=== PATIENT | female | born 1975 | race Caucasian/White ===

== ENCOUNTER 2016-07-22 08:04 | Emergency (ER) | payer OTHER ==
--- NOTE | 2016-07-22 08:57 | ED NURSING NOTES ---
Clinical Report - Nurses [facility] [address] [place] [address] 07/22/2016 8:08 Patient: YANNICK MAYA TRIAGE Triage time 0815. Acuity: LEVEL 4. Chief Complaint: INJURY TO LEFT HAND. Alert. No acute distress. --08:20 Rosy Espinoza 08:18 07/22/16. BP: 119/77. HR: 58. RR: 18. O2 saturation: 100%. Temp: 98.5 F. Pain level now 5/10. --08:20 Rosy Espinoza. Weight: 58.9 kg. Height/Length: 60 inches. BMI: 25.4. --08:17 Roys Espinoza. Medications None. --08:19 Rosy Espinoza. Allergies No Known Drug Allergy. --08:19 Rosy Espinoza. History Arrived by private vehicle. Historian: patient. Accompanied by family. This occurred just prior to arrival. Occurred at work. Mechanism of injury: she sustained a crush injury. ( Pt got hand shut in door of walk in at work). Treatment BOOK AUTHOR: None. SOCIAL HX: Heavy tobacco smoker (cigarette)- less than 1 pack per day. --08:20 Rosy Espinoza. PROBLEMS: Dental Pain. Acute Otalgia. --08:19 Rosy Espinoza. ADDITIONAL SURGERIES: . --08:19 Rosy Espinoza. Interventions ID band on patient. To treatment room. --08:20 Rosy Espinoza. PHYSICAL ASSESSMENT Ambulatory to room. GENERAL / NEURO / PSYCH: Oriented X 4. Alert. Appears in no acute distress. EXTREMITIES: Capillary refill is less than 2 seconds in the extremities. Extremity pulses are within normal limits. Extremities exhibit normal ROM. Neuro-vascular status intact to the extremity. Left hand: tenderness and swelling localized to the proximal aspect of the hand. SKIN: Skin intact. Skin is warm and dry. --08:21 Rosy Espinoza. NURSING PROGRESS NOTES Reassurance given. Call light placed in reach. Bed placed in lowest position. Brakes of bed on. Patient ready for evaluation- chart flagged. --08:22 Rosy Espinoza 09:06 07/22/16. 3 inch pablo bandage applied to left ankle; distal pulses intact, sensation intact and motor function within normal limits. --09:06 Starla Regalado. DISPOSITION / DISCHARGE Departure time: 904. Condition at departure: unchanged and stable. No learning barriers present. Discharge instructions provided and reviewed with the patient. Reviewed medication(s). Work note given. Patient verbalized understanding. Written instructions provided in Macanese. The patient was discharged by the physician. She was discharged home and accompanied by family. She left the Emergency Department ambulatory and via private vehicle. Family member driving. --09:08 Rosy Espinoza. Locked/Released at 07/22/2016 9:09 by Rosy Espinoza,
--- NOTE | 2016-07-22 08:57 | ED NURSING NOTES ---
Clinical Report - Nurses [facility] [address] [place] [address] 07/22/2016 8:08 Patient: YANNICK MAYA TRIAGE Triage time 0815. Acuity: LEVEL 4. Chief Complaint: INJURY TO LEFT HAND. Alert. No acute distress. --08:20 Rosy Espinoza 08:18 07/22/16. BP: 119/77. HR: 58. RR: 18. O2 saturation: 100%. Temp: 98.5 F. Pain level now 5/10. --08:20 Rosy Espinoza. Weight: 58.9 kg. Height/Length: 60 inches. BMI: 25.4. --08:17 Rosy Espinoza. Medications None. --08:19 Rosy Espinoza. Allergies No Known Drug Allergy. --08:19 Rosy Espinoza. History Arrived by private vehicle. Historian: patient. Accompanied by family. This occurred just prior to arrival. Occurred at work. Mechanism of injury: she sustained a crush injury. ( Pt got hand shut in door of walk in at work). 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 SOCIAL HX: Heavy tobacco smoker (cigarette)- less than 1 pack per day. --08:20 Rosy Espinoza. PROBLEMS: Dental Pain. Acute Otalgia. --08:19 Rosy Espinoza. ADDITIONAL SURGERIES: . --08:19 Rosy Espinoza. Interventions ID band on patient. To treatment room. --08:20 Rosy Espinoza. PHYSICAL ASSESSMENT Ambulatory to room. GENERAL / NEURO / PSYCH: Oriented X 4. Alert. Appears in no acute distress. EXTREMITIES: Capillary refill is less than 2 seconds in the extremities. Extremity pulses are within normal limits. Extremities exhibit normal ROM. Neuro-vascular status intact to the extremity. Left hand: tenderness and swelling localized to the proximal aspect of the hand. SKIN: Skin intact. Skin is warm and dry. --08:21 Rosy Espinoza. NURSING PROGRESS NOTES Reassurance given. Call light placed in reach. Bed placed in lowest position. Brakes of bed on. Patient ready for evaluation- chart flagged. --08:22 Rosy Espinoza 09:06 07/22/16. 3 inch pablo bandage applied to left ankle; distal pulses intact, sensation intact and motor function within normal limits. --09:06 Starla Regalado. DISPOSITION / DISCHARGE Departure time: 904. Condition at departure: unchanged and stable. No learning barriers present. Discharge instructions provided and reviewed with the patient. Reviewed medication(s). Work note given. Patient verbalized understanding. Written instructions provided in [place]ian. The patient was discharged by the physician. She was discharged home and accompanied by family. She left the Emergency Department ambulatory and via private vehicle. Family member driving. --09:08 Rosy Espinoza. Locked/Released at 07/22/2016 9:09 by Rosy Espinoza,
--- NOTE | 2016-07-22 08:57 | ED ORDER SUMMARY ---
..... Patient: YANNICK MAYA OrderSheet [facility] VisitID: [id number] [address] [place] [address] 40y, F Registration Date/Time: 07/22/2016 ORDER SHEET Weight: 58.9 kg Allergies: No Known Drug Allergy GENERAL ORDERS: Hand 3 or 4V Left Urgent (08:21 07/22/2016 Anthony per protocol) (Ack 8:25 KHoerner) (8:40 KHoerner) Markie Wrap (08:53 07/22/2016 Wilmer MCKEON) (9:05 Franco) MEDICATION ORDERS: IV FLUIDS: ORDER SHEET NOTES: [Electronically signed by Rosy Espinoza (09:09 07/22/2016)] [Electronically signed by Srinath Garcia MD (21:56 07/23/2016)] [Electronically locked/signed by Rosy Espinoza (09:09 07/22/2016)]
--- NOTE | 2016-07-22 08:57 | ED CLINICAL REPORT ---
Clinical Report - Physicians/Mid Levels [facility] [address] [place] [address] 07/22/2016 8:08 [id number] Time Seen: 08:33 Jul 22 2016. Arrived- By private vehicle. Historian- patient. CPT: ER phys charges level 3 (#322467). HISTORY OF PRESENT ILLNESS Chief Complaint: Injury to the left hand. The injury happened just prior to arrival. Occurred at home. The patient sustained a crush injury- caught hand in door. Patient is experiencing moderate pain. No other injury. REVIEW OF SYSTEMS The patient has had swelling. No tingling, numbness, weakness, foreign body or skin laceration. PAST HISTORY See nurses notes. Dental Pain. Acute Otalgia. ADDITIONAL SURGERIES: . The patient's dominant hand is the right. SOCIAL HISTORY Heavy tobacco smoker (cigarette)- 1 pack per day. ADDITIONAL NOTES The nursing notes have been reviewed. PHYSICAL EXAM Vital Signs: 07/22/2016 08:18 BP: 119/77. HR: 58. RR: 18. O2 saturation: 100%. Temp: 98.5 F. Appearance: Alert. Patient in mild distress. Skin: Skin warm. Skin intact. Extremities: Dorsal left hand: moderate tenderness and swelling of the proximal aspect of the dorsal hand. Neurovascular intact distally. (tender over the MCP joints of fingers 2,3,4. Deformity base of 5th MC). No ecchymosis, foreign body or deformity. No limitation of extension. Extremities otherwise negative. Neuro, Vascular and Tendons: Vascular status intact. Sensation intact. Motor intact. Tendon function intact. Neuro: Oriented X 3. No motor deficit. No sensory deficit. LABS, X-RAYS, AND EKG X-Rays: Left hand negative. PROGRESS AND PROCEDURES Patient/family counseled. Disposition: Discharged. Condition: stable. CLINICAL IMPRESSION Contusion to the left hand. Crush injury to the left hand. INSTRUCTIONS Apply ice for 15-20 minutes three times a day for one days. Limit use of your left hand until better. Do not work today, for one day until better. Prescription Medications: Hydrocodone/APAP 5mg/325mg: take 1 to 2 orally every 6 hours as needed for pain. Dispense fifteen (15). No refills. Ibuprofen 600mg tablets: take 1 tablet orally every 8 hours as needed for pain. Dispense thirty (30). No refills. Follow-up: Follow up with your doctor in one week. Call for an appointment. Understanding of the discharge instructions verbalized by patient. (Electronically signed by Srinath Garcia MD 07/23/2016 21:56)
--- NOTE | 2016-07-22 08:57 | ED CLINICAL REPORT ---
Clinical Report - Physicians/Mid Levels [facility] [address] [place] [address] 07/22/2016 8:08 [id number] Time Seen: 08:33 Jul 22 2016. Arrived- By private vehicle. Historian- patient. CPT: ER phys charges level 3 (#161403). HISTORY OF PRESENT ILLNESS Chief Complaint: Injury to the left hand. The injury happened just prior to arrival. Occurred at home. The patient sustained a crush injury- caught hand in door. Patient is experiencing moderate pain. No other injury. REVIEW OF SYSTEMS The patient has had swelling. No tingling, numbness, weakness, foreign body or skin laceration. PAST HISTORY See nurses notes. Dental Pain. Acute Otalgia. ADDITIONAL SURGERIES: . The patient's dominant hand is the right. SOCIAL HISTORY Heavy tobacco smoker (cigarette)- 1 pack per day. ADDITIONAL NOTES The nursing notes have been reviewed. PHYSICAL EXAM Vital Signs: 07/22/2016 08:18 BP: 119/77. HR: 58. RR: 18. O2 saturation: 100%. Temp: 98.5 F. Appearance: Alert. Patient in mild distress. Skin: Skin warm. Skin intact. Extremities: Dorsal left hand: moderate tenderness and swelling of the proximal aspect of the dorsal hand. Neurovascular intact distally. (tender over the MCP joints of fingers 2,3,4. Deformity base of 5th MC). No ecchymosis, foreign body or deformity. No limitation of extension. Extremities otherwise negative. Neuro, Vascular and Tendons: Vascular status intact. Sensation intact. Motor intact. Tendon function intact. Neuro: Oriented X 3. No motor deficit. No sensory deficit. LABS, X-RAYS, AND EKG X-Rays: Left hand negative. PROGRESS AND PROCEDURES Patient/family counseled. Disposition: Discharged. Condition: stable. CLINICAL IMPRESSION Contusion to the left hand. Crush injury to the left hand. INSTRUCTIONS Apply ice for 15-20 minutes three times a day for one days. Limit use of your left hand until better. Do not work today, for one day until better. Prescription Medications: Hydrocodone/APAP 5mg/325mg: take 1 to 2 orally every 6 hours as needed for pain. Dispense fifteen (15). No refills. Ibuprofen 600mg tablets: take 1 tablet orally every 8 hours as needed for pain. Dispense thirty (30). No refills. Follow-up: Follow up with your doctor in one week. Call for an appointment. Understanding of the discharge instructions verbalized by patient. (Electronically signed by Srinath Garcia MD 07/23/2016 21:56)
--- NOTE | 2016-07-22 08:57 | ED ORDER SUMMARY ---
..... Patient: YANNICK MAYA OrderSheet [facility] VisitID: [id number] [address] [place] [address] 40y, F Registration Date/Time: 07/22/2016 ORDER SHEET Weight: 58.9 kg Allergies: No Known Drug Allergy GENERAL ORDERS: Hand 3 or 4V Left Urgent (08:21 07/22/2016 Anthony per protocol) (Ack 8:25 KHoerner) (8:40 KHoerner) Markie Wrap (08:53 07/22/2016 Wilmer MCKEON) (9:05 Franco) MEDICATION ORDERS: IV FLUIDS: ORDER SHEET NOTES: [Electronically signed by Rosy Espinoza (09:09 07/22/2016)] [Electronically signed by Srinath Garcia MD (21:56 07/23/2016)] [Electronically locked/signed by Rosy Espinoza (09:09 07/22/2016)]
--- NOTE | 2016-07-22 10:30 | DIAGNOSTIC IMAGING REPORT ---
PROCEDURE: XR HAND 3 OR 4 VIEWS - LEFT INDICATION: TRAUMA/INJURY TECHNIQUE: Four views. COMPARISON: None. FINDINGS: Old healed fifth metacarpal fracture with dorsal angulation. Osseous structures and joint spaces are otherwise normal. IMPRESSION: 1. Old healed fifth metacarpal fracture.
--- NOTE | 2016-07-23 21:56 | ED MED RECONCILIATION SUMMARY ---
Patient: YANNICK MAYA Medication Reconciliation Report [facility] VisitID: [id number] [address] [place] [address] 40y, F Registration Date/Time: 07/22/2016 Weight: 58.9 kg Height/Length: 60 in. BMI: 25.4 ALLERGIES: No Known Drug Allergy The patient's Home Medications are listed below: NONE. The source(s) of the original Home Medication information: Not obtained. The following Medications were given to the patient in the Emergency Department: None. The following Medications were prescribed to the patient: Hydrocodone/APAP 5mg/325mg: take 1 to 2 orally every 6 hours as needed for pain. Dispense fifteen (15). No refills. -- Srinath Garcia MD Ibuprofen 600mg tablets: take 1 tablet orally every 8 hours as needed for pain. Dispense thirty (30). No refills. -- Srinath Garcia MD
--- NOTE | 2016-07-23 21:56 | ED DISCHARGE INSTRUCTIONS ---
Patient: YANNICK MAYA General Instructions [facility] VisitID: [id number] [place] [address] 40y, F Registration Date/Time: 07/22/2016 Contusion to the left hand. Crush injury to the left hand. INSTRUCTIONS Apply ice for 15-20 minutes three times a day for one days. Limit use of your left hand until better. Do not work today, for one day until better. Prescription Medications: Hydrocodone/APAP 5mg/325mg: take 1 to 2 orally every 6 hours as needed for pain. Dispense fifteen (15). No refills. Ibuprofen 600mg tablets: take 1 tablet orally every 8 hours as needed for pain. Dispense thirty (30). No refills. Follow-up: Follow up with your doctor in one week. Call for an appointment. Understanding of the discharge instructions verbalized by patient. ADDITIONAL INFORMATION Contusion,Soft Tissue You have a CONTUSION, which is a bruise with swelling and some bleeding under the skin. There are no broken bones. This injury takes a few days to a few weeks to heal. Home Care: 1) Keep the injured part elevated to reduce pain and swelling. This is especially important during the first 48 hours. 2) Make an ice pack (ice cubes in a plastic bag, wrapped in a towel) and apply for 20 minutes every 1-2 hours the first day. Continue this 3-4 times a day until the pain and swelling goes away. 3) You may use acetaminophen (Tylenol) or ibuprofen (Motrin, Advil) to control pain, unless another pain medicine was prescribed. [ NOTE : If you have chronic liver or kidney disease or ever had a stomach ulcer or GI bleeding, talk with your doctor before using these medicines.] Follow Up with your doctor or this facility if you are not improving within the next THREE days. [NOTE: If X-rays were taken, they will be reviewed by a radiologist. You will be notified of any new findings that may affect your care.] Get Prompt Medical Attention if any of the following occur: -- Pain or swelling increases -- Injured arm or leg becomes cold, blue, numb or tingly -- Redness, warmth or drainage from the skin Contusion:Upper Extremity You have a contusion of your upper extremity (arm, wrist, hand or fingers). This causes local pain, swelling and sometimes bruising. There are no broken bones. This injury takes a few days to a few weeks to heal. A sling may be provided for comfort and arm support. Home Care: 1) Keep your arm elevated to reduce pain and swelling. This is very important during the first 48 hours. 2) Apply an ice pack (ice cubes in a plastic bag, wrapped in a towel) over the injured area for 20 minutes every 1-2 hours the first day for pain relief. Continue this 3-4 times a day until the pain and swelling goes away. 3) You may use acetaminophen (Tylenol) or ibuprofen (Motrin, Advil) to control pain, unless another pain medicine was prescribed. [ NOTE : If you have chronic liver or kidney disease or ever had a stomach ulcer or GI bleeding, talk with your doctor before using these medicines.] 4) If a sling was provided, you may remove it to shower or bathe. Do not wear it for more than one week or it may cause joint stiffness. Follow Up with your doctor or this facility if you are not starting to improve within the next THREE days. [NOTE: If X-rays were taken, they will be reviewed by a radiologist. You will be notified of any new findings that may affect your care.] Get Prompt Medical Attention if any of the following occur: -- Pain or swelling increases -- Redness, warmth or drainage -- Hand or fingers becomes cold, blue, numb or tingly You have been given the following additional information: Contusion, Soft Tissue Contusion, Upper Extremity Limit use of your left hand until better. Do not work today, for one day until better. (Electronically signed by Srinath Garcia MD 07/23/2016 21:56)
--- NOTE | 2016-07-23 21:56 | ED MAR SUMMARY ---
..... Medication Administration Record [facility] [address] [place], [place] [id number] Patient: YANNICK MAYA Visit ID: [id number] 40y, F Weight: 58.9 kg Height/Length: 60 in BMI: 25.4 ALLERGIES: No Known Drug Allergy
--- NOTE | 2016-07-23 21:56 | ED MED RECONCILIATION SUMMARY ---
Patient: YANNICK MAYA Medication Reconciliation Report [facility] VisitID: [id number] [address] [place] [address] 40y, F Registration Date/Time: 07/22/2016 Weight: 58.9 kg Height/Length: 60 in. BMI: 25.4 ALLERGIES: No Known Drug Allergy The patient's Home Medications are listed below: NONE. The source(s) of the original Home Medication information: Not obtained. The following Medications were given to the patient in the Emergency Department: None. The following Medications were prescribed to the patient: Hydrocodone/APAP 5mg/325mg: take 1 to 2 orally every 6 hours as needed for pain. Dispense fifteen (15). No refills. -- Srinath Garcia MD Ibuprofen 600mg tablets: take 1 tablet orally every 8 hours as needed for pain. Dispense thirty (30). No refills. -- Srinath Garcia MD
--- NOTE | 2016-07-23 21:56 | ED MAR SUMMARY ---
..... Medication Administration Record [facility] [address] [place], [place] [id number] Patient: YANNICK MAYA Visit ID: [id number] 40y, F Weight: 58.9 kg Height/Length: 60 in BMI: 25.4 ALLERGIES: No Known Drug Allergy
== END 2016-07-22 09:05 | disposition home or self-care (01) ==
LOC: ED SRH 08:04
DX: S67.22XA Crushing injury of left hand, initial encounter (principal); S60.222A Contusion of left hand, initial encounter; W23.0XXA Caught, crushed, jammed, or pinched between moving objects, initial encounter; Y93.89 Activity, other specified; Y92.019 Unspecified place in single-family (private) house as the place of occurrence of the external cause; Y99.0 Civilian activity done for income or pay; F17.210 Nicotine dependence, cigarettes, uncomplicated